=== PATIENT | female | born 1980 | race Caucasian/White ===

== ENCOUNTER → 2024-10-22 | Outpatient (CLI) | payer MEDICAID, SELFPAY ==
--- NOTE | 2024-10-22 09:45 | XR_ITS ---
Examination: MRI thoracic spine without contrast. Date and time of exam: October 22, 2024 1016 hours INDICATIONS: Back pain 2 years radiating to the rib cage weakness in the extremities Technique: Multiple sagittal and axial images of the thoracic spine have been obtained. T1 weighted localizer, sagittal T2 weighted images, TR 30-50, TE 148, T1 weighted sagittal images, TR 650, TE 14, T2-weighted transverse images, TR 6770, TE 142 Findings: Adequate alignment thoracic vertebral bodies Minimal chronic wedging mid dorsal vertebral bodies No acute thoracic fracture Adequate marrow signal thoracic vertebral bodies Mild diffuse thoracic disc desiccation Axial images demonstrate no focal disc protrusion impinging upon the thoracic cord No localized enlargement thoracic cord Impression: Mild diffuse thoracic degenerative disc disease No focal thoracic disc protrusion impinging upon the thoracic cord
== END | disposition home or self-care (01) ==
PROVIDERS: PCP Physician Assistant Medical; Referring Provider Physician Assistant Medical; Visit Provider Physician Assistant Medical
DX: M51.34 Other intervertebral disc degeneration, thoracic region (principal)
CPT/HCPCS: 72146

== ENCOUNTER → 2024-10-23 | Outpatient (CLI) | payer MEDICAID, SELFPAY ==
--- NOTE | 2024-10-23 07:30 | XR_ITS ---
Examination: MRI cervical spine without intravenous contrast Date and time of exam: October 23, 2024 0709 hours INDICATIONS: Neck pain beginning 2 years ago radiating to the extremities weakness in the extremities Technique: Multiple axial and sagittal sections of the cervical spine to been obtained. T2 weighted sagittal sections, TR 3, 270, TE 117 T1-weighted sagittal sections, TR 500, TE 11 T1-weighted axial sections, TR 607, TE 12, axial sections TR 18, TE 27 and T2 weighted transverse sections, TR 3920, TE 122. Findings: Adequate alignment cervical vertebral bodies No cervical fracture. Intact odontoid Diffuse cervical disc desiccation No localized enlargement cervical cord C2-C3 no disc protrusion C3-C4 no disc protrusion C4-C5 no disc protrusion C5-C6 2 mm central subarticular osteophyte disc complex, mild bilateral neural foraminal stenosis C6-C7 no disc protrusion C7-T1 no disc protrusion IMPRESSION: Early degenerative disc disease C5-C6 C5-C6 2 mm central subarticular osteophyte disc complex, mild bilateral neural foraminal stenosis
--- NOTE | 2024-10-23 08:00 | XR_ITS ---
Examination: MRI lumbar spine without contrast Date and time of exam: October 23, 2024 0709 hours INDICATIONS: Back pain beginning 2 years ago Technique: Multiple MRI axial and sagittal sections lumbar spine. Sagittal T2-weighted images, TR 3500, TE 118 T1 weighted transverse sections, TR 688 T8.5, T2-weighted sagittal sections T1 weighted sagittal sections TR 621, TE 30 T2 axial sections, TR 4, 190, TE 84. Findings: Adequate alignment lumbar vertebral bodies. No lumbar fracture. No significant lumbar disc narrowing. No spondylolisthesis. Axial images demonstrate no focal lumbar disc protrusion IMPRESSION: No lumbar fracture No focal lumbar disc protrusion
== END | disposition home or self-care (01) ==
LOC: SMRI 06:48
PROVIDERS: PCP Physician Assistant Medical; Referring Provider Physician Assistant Medical; Visit Provider Physician Assistant Medical
DX: M50.322 Other cervical disc degeneration at C5-C6 level (principal); M48.02 Spinal stenosis, cervical region; M25.78 Osteophyte, vertebrae
CPT/HCPCS: 72141; 72148

== ENCOUNTER → 2025-01-21 | Outpatient (CLI) | payer MEDICAID, SELFPAY ==
--- NOTE | 2025-01-21 12:25 | XR_ITS ---
EXAMINATION: Sacroiliac joints 3 views TECHNIQUE: AP, CARLOS YAKUT sacroiliac joints 3 views Date and time: January 21, 2025, 12:53 p.m. INDICATIONS: Sacral pain 1 year FINDINGS: Mild bilateral sacroiliitis. No fracture Symmetrical sacral foramina IMPRESSION: Bilateral mild sacral ileitis
== END | disposition home or self-care (01) ==
PROVIDERS: PCP Physician Assistant Medical; Referring Provider Nurse Practitioner Family; Visit Provider Nurse Practitioner Family
DX: M46.1 Sacroiliitis, not elsewhere classified (principal)
CPT/HCPCS: 72202